=== PATIENT | male | born 1995 | race Two or more races ===

== ENCOUNTER 2024-05-29 17:15 | Emergency (ER) | payer SELFPAY ==
[~2024-05-29] VITALS: Ht 182.9 cm; Wt 121.5 kg
--- NOTE | 2024-05-29 17:41 | ECG ---
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
[2024-05-29] MEDS: ALPRAZolam 0.5 MG TAB PO ONE (17:45)
--- NOTE | 2024-05-29 18:26 | DVH ---
XY CHEST PORTABLE, HISTORY: palpitations COMPARISON: None None TECHNICAL DATA: 1 view of the chest was obtained. FINDINGS: Lines and tubes: None Cardiomediastinal silhouette: normal Pulmonary vasculature: normal Lung expansion: normal Lung airspace: normal Lung interstitium: normal Pleura: normal Pneumothorax: no Bones: Unremarkable Other: no IMPRESSION: No acute intrathoracic abnormality.
[2024-05-29 18:37] LABS: Sodium 139 mmol/L (136-145)
[2024-05-29 18:38] LABS: Anion Gap 11 (5-15); Basophils # (auto) 0 10 ^3/uL (0-0.2); Basophils % (auto) 0.4 % (0.0-2.0); Carbon Dioxide 21 mmol/L (20-31); Eosinophils # (auto) 0.1 10 ^3/uL (0-0.8); Eosinophils % (auto) 1.2 % (0.0-7.0); Hemoglobin 15.9 g/dL (13.5-17.5); Lymphocytes # (auto) 1.9 10 ^3/uL (0.4-5.4); Lymphocytes % (auto) 18.7 % (10.0-50.0); Mean Corpuscular Hemoglobin 27.7 pg (28.0-32.0); Mean Corpuscular Hgb Conc. 33.9 g/dL (32.0-36.0); Mean Corpuscular Volume 81.8 fL (80.0-100.0); Monocytes # (auto) 0.8 10 ^3/uL (0-1.3); Monocytes % (auto) 7.8 % (0.0-12.0); Neutrophils # (auto) 7.3 10 ^3/uL (1.6-8.6); Neutrophils % (auto) 71.9 % (37.0-80.0); Nucleated Red Blood Cells % 0.1 %; Platelet Count (auto) 310 10^3/uL (140-450); Red Blood Cells 5.74 10^6/uL (4.5-5.90); Red Cell Distribution Width 13.9 % (11.8-14.3); White Blood Cell 10.2 10^3/uL (4.4-10.8)
[2024-05-29 18:39] LABS: Calcium 9.9 mg/dL (8.7-10.4)
[2024-05-29 18:43] LABS: BUN/Creatinine Ratio 13.4 (10.0-20.0); Blood Urea Nitrogen 11 mg/dL (9-23)
[2024-05-29 18:53] LABS: Chloride 107 mmol/L (98-107); Glucose 116 mg/dL (74-106); Potassium 3.5 mmol/L (3.5-5.1)
[2024-05-29 20:14] LABS: Urine Bacteria FEW /hpf (None Seen); Urine Blood Negative /uL (Negative); Urine Clarity Clear (Clear); Urine Color Light-Yellow (Yellow); Urine Mucus FEW (None Seen); Urine Protein, UAD Negative (Negative); Urine Specific Gravity 1.007 (1.001-1.035); Urine Squamous Epithelial Cell FEW /hpf (<5); Urine Urobilinogen Normal (Negative); Urine WBC < 1 /HPF (0-3)
--- NOTE | 2024-05-29 20:16 | ED.PDOC ---
Psychiatric HPI Comments 28y M who presents to the ED for chief complaint of palpitations. Pt states earlier today while driving, pt was a stop sign and states he started to have palpitations described as a fluttering in his chest. He states the symptoms were somewhat alleviated by breathing fast, however then he developed facial numbness and body tingling. Pt states these symptoms have been occurring intermittently over the past 1 week and states it has caused him difficulty falling asleep. Pt states the symptoms worsened today while driving and he came to the ED for further evaluation. Pt states upon arrival to the ED, he was having tingling sensation in his body with noted palpitations, shortness of breath and sharp chest discomfort upon taking deep breaths. Pt otherwise states to help with his symptoms prior to driving, he took Sudafed to help with his symptoms, as he felt he was having difficulty breathing through his nose. Pt states he was daily marijuana but state he stopped 6 months prior and has been using vape/nicotine since. Pt upon arrival to the ED had heart rate of 117 with rr of 22 and blood pressure of 153/88 but now has noted heart rate of 101, RR 22 and BP of 121/75. Pt otherwise denies any other symptoms at this time. Chief Complaint: Anxiety Time Seen by MD: 20:10 Reviewed Notes: Medications, Allergies Information Source: Patient Mode of Arrival: Wheelchair Severity: Able to Care for Self Past Medical History PAST MEDICAL HISTORY: Asthma Past Medical History (Other): Pneumonia 1 year ago Surgical History (Other): Dental surgery Family History Family History: Reviewed,noncontributory to illness Social History Smoker: Other (vape/nicotine) Alcohol: Denies ETOH Use Drugs: Marijuana Lives In: Home Constitutional: denies: chills, diaphoresis, fatigue, fever, malaise, sweats, weakness, others EENTM: denies: blurred vision, double vision, ear bleeding, ear discharge, ear drainage, ear pain, ear ringing, eye pain, eye redness, hearing loss, mouth pain, mouth swelling, nasal discharge, nose bleeding, nose congestion, nose pain, photophobia, tearing, throat pain, throat swelling, voice changes, others Respiratory: reports: shortness of breath; denies: cough, hemoptysis, orthopnea, SOB at rest, SOB with excertion, stridor, wheezing, others Cardiovascular: reports: chest pain, palpitations; denies: dizzy spells, diaphoresis, Dyspnea on exertion, edema, irregular heart beat, left arm pain, lightheadedness, PND, syncope, others Gastrointestinal: denies: abdomen distended, abdominal pain, blood streaked bowels, constipated, diarrhea, dysphagia, difficulty swallowing, hematemesis, melena, nausea, poor appetite, poor fluid intake, rectal bleeding, rectal pain, vomiting, others Genitourinary: denies: burning, dysuria, flank pain, frequency, hematuria, incontinence, penile discharge, penile sore, pain, testicle pain, testicle swelling, urgency, others Neurological: reports: numbness, tingling; denies: dizziness, fainting, headache, left sided numbness, left sided weakness, paresthesia, pre-existing deficit, right sided numbness, right sided weakness, seizure, speech problems, tremors, weakness, others Musculoskeletal: denies: back pain, gout, joint pain, joint swelling, muscle pain, muscle stiffness, neck pain, others Integumetry: denies: bruises, change in color, change in hair/nails, dryness, laceration, lesions, lumps, rash, wounds, others Allergic/Immunocompromised: denies: Difficulty Healing, Frequent Infections, Hives, Itching, others Hematologic/Lymphatic: denies: anemia, blood clots, easy bleeding, easy bruising, swollen glands, others Endocrine: denies: excessive hunger, excessive sweating, excessive thirst, excessive urination, flushing, intolerance to cold, intolerance to heat, unexplained weight gain, unexplained weight loss, others Psychiatric: denies: anxiety, bipolar disorder, depression, hopeless, panic disorder, schizophrenia, sleepless, suicidal, others All Other Systems: Reviewed and Negative Physical Exam General Appearance: No Apparent Distress, Obese HEENT: PERRL/EOMI Neck: Full Range of Motion, Normal Inspection Respiratory: Lungs Clear, No Accessory Muscle Use, No Respiratory Distress, Normal Breath Sounds Cardiovascular: No Edema, No JVD, Tachycardia Breast Exam: Deferred Gastrointestinal: Non Tender, Soft Genitalia: Deferred Pelvic: Deferred Rectal: Deferred Extremities: No calf tenderness, Normal inspection, Non-tender, No pedal edema Neurologic: Alert (Oriented x4), Other (Appears anxious. Ambulatory. No gross focal deficit.) Cerebellar Function: NOT DONE Reflexes: NOT DONE Skin: Dry, Normal Color, Warm Lymphatic: NOT DONE EKG EKG : Comments Sinus tach, rate 117, normal intervals, normal axis, normal QRS, nonspecific T changes. Was a procedure done? Was a procedure done?: No Psych Differential Dx Psych. Differential Dx: Anxiety, Panic Disorder OD Differential Dx: Panic Disorder Intoxication Differential Dx: Dehydration, Substance Abuse Disorder Other Differentail Dx panic attack, arrhythmia, MD, PE, among others X-Ray, Labs, Meds, VS Vital Signs Date Time Temp Pulse Resp B/P (MAP) Pulse Ox O2 Delivery O2 Flow Rate FiO2 05/29/24 19:49 Room Air* 0 21 05/29/24 19:40 97.7 101 22 121/75 (90) 96 97.7 05/29/24 17:46 Room Air* 0 21 05/29/24 17:44 97.9 118 22 153/88 (109) 98 05/29/24 17:35 117 Lab Test 05/29/24 19:16 05/29/24 18:50 05/29/24 18:20 05/29/24 17:29 Range/Units Troponin I High Sensitivity 5 3 L </=54 ng/L Urine Color Light-yellow Yellow Urine Clarity Clear Clear Urine pH 6.0 5.0-9.0 Urine Specific Banks 1.007 1.001-1.035 Urine Protein Negative Negative Urine Ketones Negative Negative Urine Blood Negative Negative /uL Urine Nitrite Negative Negative Urine Bilirubin Negative Negative Urine Urobilinogen Normal Negative mg/dL Urine Leukocyte Esterase Negative Negative /uL Urine RBC 1 0 - 3 /hpf Urine Microscopic WBC < 1 0-3 /HPF Urine Squamous Epithelial Cells Few <5 /hpf Urine Bacteria Few H None Seen /hpf Urine Mucus Few None Seen Urine Glucose Normal Normal mg/dL White Blood Count 10.2 4.4-10.8 10^3/uL Red Blood Count 5.74 4.5-5.90 10^6/uL Hemoglobin 15.9 13.5-17.5 g/dL Hematocrit 47.0 41.0-53.0 % Mean Corpuscular Volume 81.8 80.0-100.0 fL Mean Corpuscular Hemoglobin 27.7 L 28.0-32.0 pg Mean Corpuscular Hemoglobin Concent 33.9 32.0-36.0 g/dL Red Cell Distribution Width 13.9 11.8-14.3 % Platelet Count 310 140-450 10^3/uL Mean Platelet Volume 6.8 L 6.9-10.8 fL Neutrophils (%) (Auto) 71.9 37.0-80.0 % Lymphocytes (%) (Auto) 18.7 10.0-50.0 % Monocytes (%) (Auto) 7.8 0.0-12.0 % Eosinophils (%) (Auto) 1.2 0.0-7.0 % Basophils (%) (Auto) 0.4 0.0-2.0 % Neutrophils # (Auto) 7.3 1.6-8.6 10 ^3/uL Lymphocytes # (Auto) 1.9 0.4-5.4 10 ^3/uL Monocytes # (Auto) 0.8 0-1.3 10 ^3/uL Eosinophils # (Auto) 0.1 0-0.8 10 ^3/uL Basophils # (Auto) 0 0-0.2 10 ^3/uL Nucleated Red Blood Cells 0.1 % D-Dimer, Quantitative < 0.19 0.0-0.49 mg/L FEU Sodium Level 139 136-145 mmol/L Potassium Level 3.5 3.5-5.1 mmol/L Chloride Level 107 98-107 mmol/L Carbon Dioxide Level 21 20-31 mmol/L Anion Gap 11 5-15 Blood Urea Nitrogen 11 9-23 mg/dL Creatinine 0.82 0.700-1.30 mg/dL Glomerular Filtration Rate Calc 123 >90 mL/min BUN/Creatinine Ratio 13.4 10.0-20.0 Serum Glucose 116 H 74-106 mg/dL Calcium Level 9.9 8.7-10.4 mg/dL B-Type Natriuretic Peptide 1.91 0-100 pg/mL POC Glucose 111 H 70-106 mg/dl Current Medications Medications (Trade) Dose Ordered Sig/Blanka Route Start Time Stop Time Status Last Admin Alprazolam (Xanax Tablet) 1 mg ONCE ONCE PO 05/29/24 17:45 05/29/24 17:46 DC 05/29/24 17:[address] [address] Ph: [phone] DIAGNOSTIC IMAGING Diagnostic Imaging Report : [id number] Signed PATIENT: SLIME GRANGER ACCT: [id number] UNIT: [id number] : 1995 LOC: ER ROOM / BED: / AGE / SEX: 28 / M ADM STATUS: REG ER SERVICE 52 ORDERING PHYSICIAN: CHINYERE PERALTA MD PROCEDURE(s): CXRP - CHEST PORTABLE REASON: palpitations ORDER NUMBER(s): [id number], ACCESSION NUMBER(s): [id number] XY CHEST PORTABLE, HISTORY: palpitations COMPARISON: None None TECHNICAL DATA: 1 view of the chest was obtained. FINDINGS: Lines and tubes: None Cardiomediastinal silhouette: normal Pulmonary vasculature: normal Lung expansion: normal Lung airspace: normal Lung interstitium: normal Pleura: normal Pneumothorax: no Bones: Unremarkable Other: no IMPRESSION: No acute intrathoracic abnormality. ATED BY: WADE BOYD MD DICTATED DATE/TIME: 05/29/241822 SIGNED BY: WADE BOYD MD SIGNED DATE/TIME: 05/29/241822 CC: X-Ray, Labs, Meds, VS Comment 28-year-old male with a history of asthma brought in by self complaining of palpitations which he states are alleviated by breathing fast, associated with insomnia, pressure-like chest discomfort, and today facial numbness and extremi ty tingling Vitals remarkable for initial heart rate 117 Exam remarkable for tachycardia and anxious appearance Rhythm strip independently interpreted by me: Sinus tach, rate 117, no ectopy. Chest x-ray IMPRESSION: No acute intrathoracic abnormality. CBC, basic metabolic panel, BNP, D-dimer and troponin unremarkable for any abnormality of acute significance. UA unremarkable. Patient treated with the following in the ED: Xanax 1 mg p.o. with improvement of his symptoms. On re-evaluation, patient states he is no longer having numbness or tingling, he is not short of breath, is not having palpitations, heart rate is within normal limits, and other vitals were stable. Hospitalization was considered, however patient had rapid improvement of symptoms with treatment in the ED, and I no longer feel hospitalization is necessary. Patient now appears stable for discharge with close outpatient follow-up with his primary physician. Rx hydroxyzine. Time of 1ST Reevaluation: 20:40 Reevaluation 1ST: Unchanged Time of 2ND Reevaluation: 21:51 Reevaluation 2ND: Improved Patient Education/Counseling: Diagnosis, Treatment Family Education/Counseling: No Family Present Additional Information -Reviewed patient's previous visit(s): - The following tests were ordered, and results were reviewed by me: ekg x1, tropx2, cbc, bnp, chest x-ray, ua, bmp, d- dimer - I reviewed and agreed with the following test results read by other provider: radiologist - I discussed treatments and results with medical personnel and: patient Comprehensive systems review obtained and negative except for what is stated in the HPI. Departure 1 Departure Time of Disposition: 21:51 Impression: Primary Impression: Palpitations Additional Impression: Hyperventilation syndrome Disposition: HOME / SELF CARE / HOMELESS Condition: Stable Additional Instructions: Your blood tests, including screening test for heart attack, heart failure, and blood clots in your lungs, were unremarkable. Your chest x-ray was normal. Your EKG was unremarkable except for a mildly elevated heart rate. I have prescribed medication to treat your symptoms. Follow-up with your primary doctor in 1-2 days. e-Prescriptions Hydroxyzine HCl (Hydroxyzine Hydrochloride) 50 Mg Tab 50 MG PO Q6HP PRN, #30 TAB prn palpitations, anxiety or insomnia Prov: CHINYERE PERALTA MD 05/29/24 Discharged With: Relative Critical Care Note Critical Care Time?: No Stability Stability form required: No Heart Score Heart Score: Heart Score Response (Comments) Value History Slightly Suspicious 0 EKG Repolarization Disturb 1 Age <45 0 Risk Factors No known risk factors 0 Troponin Normal limit 0 Total 1 I personally scribed for CHINYERE PERALTA MD ([email or web address]) on 05/29/24 at 20:16. Electronically submitted by Blanche Duran ([email or web address]). CHINYERE PERALTA MD May 29, 2024 20:16
[2024-05-29] MEDS ORDERED: HYDR50TA32 PO (21:53)
[2024-05-29 21:59] VITALS: BP 151/99; PULSE 92; RESP 20; TEMP 98.3; O2SAT 99
== END 2024-05-29 22:08 | disposition home or self-care (01) ==
LOC: ER 17:15
DX: R00.2 Palpitations (principal); F45.8 Other somatoform disorders; R07.89 Other chest pain; F17.290 Nicotine dependence, other tobacco product, uncomplicated; J45.909 Unspecified asthma, uncomplicated; F41.9 Anxiety disorder, unspecified; R06.02 Shortness of breath
CPT/HCPCS: 36415; 71045; 80048; 81001; 82947; 82962; 83880; 84484; 85025; 85379; 93005